=== PATIENT | male | born 1955 ===

== ENCOUNTER 2024-01-21 08:26 | Emergency (ER) | payer MEDICAID ==
[~2024-01-21] VITALS: Ht 172.7 cm; Wt 97.6 kg
[2024-01-21 08:43] VITALS: BP 130/93; PULSE 111; RESP 15; TEMP 97.3; O2SAT 92
== END 2024-01-21 09:06 | disposition left against medical advice (07) ==
LOC: ER 08:28
DX: C85.80 Other specified types of non-Hodgkin lymphoma, unspecified site (principal); Z53.21 Procedure and treatment not carried out due to patient leaving prior to being seen by health care provider